=== PATIENT | female | born 1955 | race Caucasian/White ===

== ENCOUNTER 2016-07-11 09:42 | Emergency (ER) | payer MEDICAID, MEDICARE ==
[~2016-07-11] VITALS: Ht 154.9 cm; Wt 74.5 kg
[~2016-07-11 09:42] MED LIST: ADV250 IH; ASPI-449 PO; BUPR-93 PO; CLON.5 PO; DONE10TA43 PO; DONE5TAB PO; ESCI20TA PO; HALO10TA15 PO; LISI-660 PO; METF500T4 PO; MULT1CAP42 PO; OMEP20CA10 PO; SIMV20 PO; ZOLP10 PO
[2016-07-11] MEDS ORDERED: IBUPROFEN 600 MG TABLET PO ONE (10:15)
[2016-07-11 10:45] VITALS: BP 151/60
== END 2016-07-11 12:04 | disposition home or self-care (01) ==
LOC: EMS 09:43
DX: S82.892A Other fracture of left lower leg, initial encounter for closed fracture (principal); S93.401A Sprain of unspecified ligament of right ankle, initial encounter; I10 Essential (primary) hypertension; E78.00 Pure hypercholesterolemia, unspecified; J45.909 Unspecified asthma, uncomplicated; K21.9 Gastro-esophageal reflux disease without esophagitis; X58.XXXA Exposure to other specified factors, initial encounter; Y93.01 Activity, walking, marching and hiking; Y92.89 Other specified places as the place of occurrence of the external cause; Y99.8 Other external cause status
CPT/HCPCS: 29515; 99284

== ENCOUNTER 2017-07-16 10:44 | Inpatient (IN) | payer MEDICARE ==
[~2017-07-16] VITALS: Ht 154.9 cm; Wt 93.5 kg
[~2017-07-16 10:44] MED LIST changes: -DONE5TAB PO; +DONE5TAB5 PO; +SIMV-260 PO; -SIMV20 PO; -ZOLP10 PO; +ZOLP10TA7 PO
[2017-07-16] MEDS ORDERED: LEVO50 PO (11:11)
[2017-07-16] MEDS ORDERED: TOPI100T37 PO (11:11)
[2017-07-16] MEDS ORDERED: MELO-107 PO (11:11)
[2017-07-16] MEDS ORDERED: BENZ1TAB10 PO (11:11)
[2017-07-16] MEDS ORDERED: VALP250 PO (11:11)
[2017-07-16] MEDS ORDERED: ZIPR80CA2 PO (11:11)
[2017-07-16] MEDS ORDERED: ESTR-95 PO (11:11)
[2017-07-16] MEDS ORDERED: DIVA500T35 PO (11:11)
[2017-07-16] MEDS ORDERED: RISP1 PO (11:11)
[2017-07-16] MEDS ORDERED: ATOR10TA84 PO (11:11)
[2017-07-16] MEDS ORDERED: ALBU8HFA IH (11:11)
[2017-07-16 11:46] LABS: BASOPHILS % (AUTO) 0.2 % (0.0-2.0); EOSINOPHILS % (AUTO) 0.3 % (1.0-6.0); HEMATOCRIT 34.7 % (36-46); LYMPHOCYTES # (AUTO) 1.8 K/uL (1.0-4.8); MEAN CORPUSCULAR HEMOGLOBIN 33.2 pg (26.0-34.0); MEAN CORPUSCULAR HGB CONC 34.6 G/dL (31.0-37.0); MEAN CORPUSCULAR VOLUME 96 fL (80-100); MONOCYTES # (AUTO) 0.6 K/uL (0.1-1.0); MONOCYTES % (AUTO) 11.1 % (2.0-9.0); NEUTROPHILS # (AUTO) 3.1 K/uL (1.8-7.7); NEUTROPHILS % (AUTO) 55.4 % (40.0-70.0); PLATELET COUNT (AUTO) 174 K/uL (150-450); RED BLOOD CELL COUNT(AUTO) 3.61 MIL/uL (4.00-5.20); RED CELL DISTRIBUTION WIDTH 12.1 % (11.5-14.5)
[2017-07-16 11:58] LABS: ANION GAP 10 mmol/L (8-16); CALCIUM, TOTAL 8.9 mg/dL (8.8-10.5); CARBON DIOXIDE 24 mmol/L (22-29); CHLORIDE 98 mmol/L (98-107); CREATININE 0.75 mg/dL (0.60-1.30); GLOMERULAR FILTR. RATE CALC > 60 mL/min (>60); GLUCOSE,RANDOM 104 mg/dL (70-110); POTASSIUM 4.5 mmol/L (3.5-5.1); SODIUM SERUM 132 mmol/L (136-145); UREA NITROGEN, BLOOD 8 mg/dL (7-18)
[2017-07-16 12:05] LABS: ALANINE AMINOTRANSFERASE 26 U/L (12-78); ALKALINE PHOSPHATASE 60 U/L (46-116); ASPARTATE AMINOTRANSFERASE 31 U/L (15-37); BILIRUBIN,TOTAL 0.2 mg/dL (0.1-1.0); TOTAL PROTEIN, SERUM 6.4 g/dL (6.4-8.2); VALPROIC ACID 80 mcg/mL (50-100)
[2017-07-16] MEDS ORDERED: LORazepam 2 MG TABLET PO PRN (13:00)
[2017-07-16] MEDS ORDERED: ZOLPIDEM TARTRATE 10 MG TABLET PO PRN (13:00)
[2017-07-16] MEDS ORDERED: HALOPERIDOL 5 MG TABLET PO PRN (13:00)
[2017-07-16 13:08] LABS: AMPHET/METH SCREEN,URINE NEGATIVE (NEGATIVE); BARBITURATE SCREEN, URINE NEGATIVE (NEGATIVE); BENZODIAZEPINES SCREEN,URINE NEGATIVE (NEGATIVE); CANNABINOID SCREEN,URINE NEGATIVE (NEGATIVE); COCAINE SCREEN,URINE NEGATIVE (NEGATIVE); METHADONE SCREEN, URINE NEGATIVE (NEGATIVE); OPIATE SCREEN,URINE NEGATIVE (NEGATIVE)
[2017-07-16 13:13] LABS: PHENCYCLIDINE SCREEN,URINE NEGATIVE (NEGATIVE)
[2017-07-16 13:43] LABS: APPEARANCE,URINE CLEAR (CLEAR); BILIRUBIN,URINE NEGATIVE (NEGATIVE); GLUCOSE, URINE (UA) NEGATIVE (NEGATIVE); KETONES,URINE NEGATIVE (NEGATIVE); LEUKOCYTE ESTERASE ,URINE TRACE (NEGATIVE); NITRATE,URINE NEGATIVE (NEGATIVE); OCCULT BLOOD,URINE TRACE (NEGATIVE); PH,URINE 7.5 (5.0-8.0); PROTEIN,URINE NEGATIVE (NEGATIVE); UROBILINOGEN,URINE 0.2 mg/dL (<=1.0)
[2017-07-16 14:07] LABS: BACTERIA,URINE None Seen /HPF (None Seen); RBC,URINE 0-2 /HPF (0-2); SQUAMOUS EPITHELIAL CELL,UR Few /LPF (None Seen); TRANSITIONAL EPI CELLS,URINE Few /LPF (None Seen)
[2017-07-16 16:06] VITALS: BP 115/63
[2017-07-16] MEDS ORDERED: ALBUTEROL SULFATE HFA 90 MCG/PUFF 8 GM INHALER IH PRN (17:15)
[2017-07-16] MEDS: MetFORMIN HCL 500 MG TABLET PO SCH (18:15)
[2017-07-16] MEDS ORDERED: ACETAMINOPHEN 325 MG TABLET PO PRN (20:15)
[2017-07-16] MEDS ORDERED: IBUPROFEN 400 MG TABLET PO PRN (20:15)
[2017-07-16] MEDS ORDERED: DONEPEZIL HCL 5 MG TABLET PO SCH (21:00)
[2017-07-16] MEDS: DONEPEZIL HCL 10 MG TABLET PO SCH (21:15)
[2017-07-16] MEDS: DIVALPROEX SODIUM 500 MG ER TABLET PO SCH (21:15)
[2017-07-16] MEDS: LEVOTHYROXINE SODIUM 50 MCG TABLET PO SCH (21:15)
[2017-07-16] MEDS: ATORVASTATIN CALCIUM 10 MG TABLET PO SCH (21:15)
[2017-07-17 06:07] LABS: GLUCOMETER DEV NAME(LOC) 3EI B; GLUCOSE,POINT OF CARE 94 MG/DL (70-110)
[2017-07-17] MEDS: ZIPRASIDONE HCL 80 MG CAPSULE PO SCH ×2 (07:07→16:55)
[2017-07-17] MEDS: MELOXICAM 7.5 MG TABLET PO SCH ×2 (07:07→16:55)
[2017-07-17] MEDS: MetFORMIN HCL 500 MG TABLET PO SCH ×2 (07:08→16:55)
[2017-07-17 07:43] LABS: CHOL/HDL RATIO 2.2 (3.9-5.7)
[2017-07-17] MEDS: RisperiDONE 1 MG TABLET PO SCH (09:01)
[2017-07-17] MEDS: ESTRADIOL 1 MG TABLET PO SCH (09:01)
[2017-07-17] MEDS: BENZTROPINE MESYLATE 1 MG TABLET PO SCH ×2 (09:01→16:55)
[2017-07-17] MEDS: DIVALPROEX SODIUM 500 MG ER TABLET PO SCH ×2 (09:01→20:24)
[2017-07-17] MEDS: FLUTICASONE/VILANTEROL 200-25 MCG/INH INHALER [14] IH SCH (09:02)
[2017-07-17] MEDS: ASPIRIN 81 MG CHEWABLE TABLET PO SCH (09:02)
[2017-07-17] MEDS: TOPIRAMATE 100 MG TABLET PO SCH ×2 (09:02→16:55)
[2017-07-17] MEDS: MULTIVITAMINS WITH MINERALS, THERAPEUTIC TABLET PO SCH (09:02)
[2017-07-17 12:40] VITALS: BP 122/60
[2017-07-17 16:27] LABS: GLUCOMETER DEV NAME(LOC) 3EX 1; GLUCOSE,POINT OF CARE 91 MG/DL (70-110)
[2017-07-17] MEDS ORDERED: ACETAMINOPHEN 325 MG TABLET PO PRN (16:30)
[2017-07-17 16:53] VITALS: BP 124/60
[2017-07-17] MEDS: ATORVASTATIN CALCIUM 10 MG TABLET PO SCH (20:24)
[2017-07-17] MEDS: LEVOTHYROXINE SODIUM 50 MCG TABLET PO SCH (20:24)
[2017-07-17] MEDS: DONEPEZIL HCL 10 MG TABLET PO SCH (20:24)
[2017-07-18 04:09] VITALS: BP 111/71
[2017-07-18 05:37] LABS: GLUCOMETER DEV NAME(LOC) 3EI B; GLUCOSE,POINT OF CARE 118 MG/DL (70-110)
[2017-07-18 06:48] LABS: HEMOGLOBIN A1C 6.4 % (4.5-6.2)
[2017-07-18 06:49] LABS: THYROID STIMULATING HORMONE 2.45 uIU/mL (0.36-3.74)
[2017-07-18] MEDS: MetFORMIN HCL 500 MG TABLET PO SCH ×2 (07:11→17:13)
[2017-07-18] MEDS: MELOXICAM 7.5 MG TABLET PO SCH ×2 (07:11→17:13)
[2017-07-18] MEDS: ZIPRASIDONE HCL 80 MG CAPSULE PO SCH ×2 (07:12→17:13)
[2017-07-18 08:06] VITALS: BP 120/46
[2017-07-18] MEDS: ASPIRIN 81 MG CHEWABLE TABLET PO SCH (09:08)
[2017-07-18] MEDS: BENZTROPINE MESYLATE 1 MG TABLET PO SCH ×2 (09:08→17:13)
[2017-07-18] MEDS: FLUTICASONE/VILANTEROL 200-25 MCG/INH INHALER [14] IH SCH (09:09)
[2017-07-18] MEDS: TOPIRAMATE 100 MG TABLET PO SCH ×2 (09:09→17:13)
[2017-07-18] MEDS: DIVALPROEX SODIUM 500 MG ER TABLET PO SCH ×2 (09:09→20:37)
[2017-07-18] MEDS: MULTIVITAMINS WITH MINERALS, THERAPEUTIC TABLET PO SCH (09:09)
[2017-07-18] MEDS: RisperiDONE 1 MG TABLET PO SCH (09:09)
[2017-07-18] MEDS: ESTRADIOL 1 MG TABLET PO SCH (09:10)
[2017-07-18 17:29] VITALS: BP 96/52
[2017-07-18] MEDS: DONEPEZIL HCL 10 MG TABLET PO SCH (20:37)
[2017-07-18] MEDS: LEVOTHYROXINE SODIUM 50 MCG TABLET PO SCH (20:37)
[2017-07-18] MEDS: ATORVASTATIN CALCIUM 10 MG TABLET PO SCH (20:37)
[2017-07-18 21:02] LABS: GLUCOMETER DEV NAME(LOC) 3EX 1; GLUCOSE,POINT OF CARE 104 MG/DL (70-110)
[2017-07-19 03:36] VITALS: BP 128/67
[2017-07-19 05:28] LABS: GLUCOMETER DEV NAME(LOC) 3EI B; GLUCOSE,POINT OF CARE 77 MG/DL (70-110)
[2017-07-19] MEDS: ZIPRASIDONE HCL 80 MG CAPSULE PO SCH ×2 (06:51→08:26)
[2017-07-19] MEDS: MELOXICAM 7.5 MG TABLET PO SCH ×2 (06:51→16:26)
[2017-07-19] MEDS: MetFORMIN HCL 500 MG TABLET PO SCH ×2 (06:51→16:27)
[2017-07-19] MEDS: MULTIVITAMINS WITH MINERALS, THERAPEUTIC TABLET PO SCH (08:25)
[2017-07-19] MEDS: BENZTROPINE MESYLATE 1 MG TABLET PO SCH ×2 (08:25→16:27)
[2017-07-19] MEDS: DIVALPROEX SODIUM 500 MG ER TABLET PO SCH ×2 (08:26→21:43)
[2017-07-19] MEDS: FLUTICASONE/VILANTEROL 200-25 MCG/INH INHALER [14] IH SCH (08:26)
[2017-07-19] MEDS: TOPIRAMATE 100 MG TABLET PO SCH ×2 (08:26→16:27)
[2017-07-19] MEDS: RisperiDONE 1 MG TABLET PO SCH (08:26)
[2017-07-19] MEDS: ASPIRIN 81 MG CHEWABLE TABLET PO SCH (08:26)
[2017-07-19] MEDS: ESTRADIOL 1 MG TABLET PO SCH (08:27)
[2017-07-19 08:40] VITALS: BP 100/67
[2017-07-19 16:38] LABS: GLUCOMETER DEV NAME(LOC) 3EX 1; GLUCOSE,POINT OF CARE 105 MG/DL (70-110)
[2017-07-19 18:14] VITALS: BP 115/68
[2017-07-19] MEDS: ATORVASTATIN CALCIUM 10 MG TABLET PO SCH (21:42)
[2017-07-19] MEDS: LEVOTHYROXINE SODIUM 50 MCG TABLET PO SCH (21:42)
[2017-07-19] MEDS: DONEPEZIL HCL 10 MG TABLET PO SCH (21:42)
[2017-07-20 06:08] LABS: GLUCOMETER DEV NAME(LOC) 3EI B; GLUCOSE,POINT OF CARE 77 MG/DL (70-110)
[2017-07-20 06:26] LABS: ANION GAP 13 mmol/L (8-16); CALCIUM, TOTAL 8.2 mg/dL (8.8-10.5); CARBON DIOXIDE 20 mmol/L (22-29); CHLORIDE 103 mmol/L (98-107); CREATININE 0.61 mg/dL (0.60-1.30); GLOMERULAR FILTR. RATE CALC > 60 mL/min (>60); GLUCOSE,RANDOM 83 mg/dL (70-110); POTASSIUM 3.8 mmol/L (3.5-5.1); SODIUM SERUM 136 mmol/L (136-145); UREA NITROGEN, BLOOD 12 mg/dL (7-18)
[2017-07-20] MEDS: MetFORMIN HCL 500 MG TABLET PO SCH ×2 (06:31→16:39)
[2017-07-20] MEDS: ZIPRASIDONE HCL 80 MG CAPSULE PO SCH ×2 (06:31→16:39)
[2017-07-20] MEDS: MELOXICAM 7.5 MG TABLET PO SCH ×2 (06:31→16:39)
[2017-07-20] MEDS: ESTRADIOL 1 MG TABLET PO SCH (08:57)
[2017-07-20] MEDS: MULTIVITAMINS WITH MINERALS, THERAPEUTIC TABLET PO SCH (08:57)
[2017-07-20] MEDS: RisperiDONE 1 MG TABLET PO SCH (08:57)
[2017-07-20] MEDS: TOPIRAMATE 100 MG TABLET PO SCH ×2 (08:57→16:39)
[2017-07-20] MEDS: DIVALPROEX SODIUM 500 MG ER TABLET PO SCH ×2 (08:57→20:13)
[2017-07-20] MEDS: BENZTROPINE MESYLATE 1 MG TABLET PO SCH ×2 (08:58→16:39)
[2017-07-20] MEDS: ASPIRIN 81 MG CHEWABLE TABLET PO SCH (08:58)
[2017-07-20] MEDS: FLUTICASONE/VILANTEROL 200-25 MCG/INH INHALER [14] IH SCH (08:58)
[2017-07-20 09:46] VITALS: BP 120/70
[2017-07-20 16:42] LABS: GLUCOMETER DEV NAME(LOC) 3EX 1; GLUCOSE,POINT OF CARE 95 MG/DL (70-110)
[2017-07-20 17:30] VITALS: BP 115/69
[2017-07-20] MEDS: ATORVASTATIN CALCIUM 10 MG TABLET PO SCH (20:12)
[2017-07-20] MEDS: DONEPEZIL HCL 10 MG TABLET PO SCH (20:12)
[2017-07-20] MEDS: LEVOTHYROXINE SODIUM 50 MCG TABLET PO SCH (20:12)
[2017-07-21 01:38] VITALS: BP 119/64
[2017-07-21 06:02] LABS: GLUCOMETER DEV NAME(LOC) 3EI B; GLUCOSE,POINT OF CARE 71 MG/DL (70-110)
[2017-07-21] MEDS: MELOXICAM 7.5 MG TABLET PO SCH ×2 (06:52→17:35)
[2017-07-21] MEDS: MetFORMIN HCL 500 MG TABLET PO SCH ×2 (06:52→17:34)
[2017-07-21] MEDS: ZIPRASIDONE HCL 80 MG CAPSULE PO SCH ×2 (06:53→17:34)
[2017-07-21 10:07] VITALS: BP 101/45
[2017-07-21] MEDS: FLUTICASONE/VILANTEROL 200-25 MCG/INH INHALER [14] IH SCH (10:08)
[2017-07-21] MEDS: BENZTROPINE MESYLATE 1 MG TABLET PO SCH ×2 (10:09→17:35)
[2017-07-21] MEDS: ASPIRIN 81 MG CHEWABLE TABLET PO SCH (10:09)
[2017-07-21] MEDS: TOPIRAMATE 100 MG TABLET PO SCH ×2 (10:09→17:35)
[2017-07-21] MEDS: RisperiDONE 1 MG TABLET PO SCH (10:09)
[2017-07-21] MEDS: ESTRADIOL 1 MG TABLET PO SCH (10:09)
[2017-07-21] MEDS: DIVALPROEX SODIUM 500 MG ER TABLET PO SCH ×2 (10:09→20:42)
[2017-07-21] MEDS: MULTIVITAMINS WITH MINERALS, THERAPEUTIC TABLET PO SCH (10:09)
[2017-07-21] MEDS: LOPERAMIDE HCL 2 MG CAPSULE PO PRN (12:47)
[2017-07-21 16:10] VITALS: BP 115/52
[2017-07-21] MEDS: IBUPROFEN 400 MG TABLET PO PRN (16:13)
[2017-07-21 16:38] LABS: GLUCOMETER DEV NAME(LOC) 3EX 1; GLUCOSE,POINT OF CARE 85 MG/DL (70-110)
[2017-07-21] MEDS: ATORVASTATIN CALCIUM 10 MG TABLET PO SCH (20:42)
[2017-07-21] MEDS: DONEPEZIL HCL 10 MG TABLET PO SCH (20:42)
[2017-07-21] MEDS: LEVOTHYROXINE SODIUM 50 MCG TABLET PO SCH (20:42)
[2017-07-22 05:33] LABS: GLUCOMETER DEV NAME(LOC) 3EI B; GLUCOSE,POINT OF CARE 76 MG/DL (70-110)
[2017-07-22] MEDS: ZIPRASIDONE HCL 80 MG CAPSULE PO SCH ×2 (07:23→17:41)
[2017-07-22] MEDS: MetFORMIN HCL 500 MG TABLET PO SCH ×2 (07:23→17:41)
[2017-07-22] MEDS: MELOXICAM 7.5 MG TABLET PO SCH ×2 (07:23→17:43)
[2017-07-22 08:14] VITALS: BP 127/77
[2017-07-22] MEDS: BENZTROPINE MESYLATE 1 MG TABLET PO SCH ×2 (08:21→16:17)
[2017-07-22] MEDS: FLUTICASONE/VILANTEROL 200-25 MCG/INH INHALER [14] IH SCH (08:21)
[2017-07-22] MEDS: ASPIRIN 81 MG CHEWABLE TABLET PO SCH (08:21)
[2017-07-22] MEDS: MULTIVITAMINS WITH MINERALS, THERAPEUTIC TABLET PO SCH (08:22)
[2017-07-22] MEDS: RisperiDONE 1 MG TABLET PO SCH (08:22)
[2017-07-22] MEDS: ESTRADIOL 1 MG TABLET PO SCH (08:22)
[2017-07-22] MEDS: DIVALPROEX SODIUM 500 MG ER TABLET PO SCH ×2 (08:22→20:15)
[2017-07-22] MEDS: TOPIRAMATE 100 MG TABLET PO SCH ×2 (08:23→16:17)
[2017-07-22] MEDS: LOPERAMIDE HCL 2 MG CAPSULE PO PRN (08:25)
[2017-07-22 16:22] LABS: GLUCOMETER DEV NAME(LOC) 3EX 1; GLUCOSE,POINT OF CARE 75 MG/DL (70-110)
[2017-07-22 16:43] VITALS: BP 109/72
[2017-07-22] MEDS: IBUPROFEN 400 MG TABLET PO PRN (16:43)
[2017-07-22] MEDS: DONEPEZIL HCL 10 MG TABLET PO SCH (20:15)
[2017-07-22] MEDS: ATORVASTATIN CALCIUM 10 MG TABLET PO SCH (20:15)
[2017-07-22] MEDS: LEVOTHYROXINE SODIUM 50 MCG TABLET PO SCH (20:15)
[2017-07-23 05:43] LABS: GLUCOMETER DEV NAME(LOC) 3EI B; GLUCOSE,POINT OF CARE 95 MG/DL (70-110)
[2017-07-23] MEDS: ZIPRASIDONE HCL 80 MG CAPSULE PO SCH (06:54)
[2017-07-23] MEDS: MELOXICAM 7.5 MG TABLET PO SCH (06:54)
[2017-07-23] MEDS: MetFORMIN HCL 500 MG TABLET PO SCH (06:55)
[2017-07-23] MEDS: RisperiDONE 1 MG TABLET PO SCH (09:49)
[2017-07-23] MEDS: MULTIVITAMINS WITH MINERALS, THERAPEUTIC TABLET PO SCH (09:49)
[2017-07-23] MEDS: BENZTROPINE MESYLATE 1 MG TABLET PO SCH (09:49)
[2017-07-23] MEDS: ASPIRIN 81 MG CHEWABLE TABLET PO SCH (09:49)
[2017-07-23] MEDS: FLUTICASONE/VILANTEROL 200-25 MCG/INH INHALER [14] IH SCH (09:50)
[2017-07-23] MEDS: ESTRADIOL 1 MG TABLET PO SCH (09:50)
[2017-07-23] MEDS: DIVALPROEX SODIUM 500 MG ER TABLET PO SCH (09:50)
[2017-07-23] MEDS: TOPIRAMATE 100 MG TABLET PO SCH (09:50)
[2017-07-23] MEDS ORDERED: DIVA500T52 PO (10:39)
[2017-07-23] MEDS ORDERED: MULT-1239 PO (10:42)
[2017-07-23 12:39] VITALS: BP 132/88
[2017-07-23] MEDS: IBUPROFEN 400 MG TABLET PO PRN (12:39)
== END 2017-07-23 16:00 | disposition home health service (06) | DRG 885 ==
LOC: EMS 10:45 → 3EX 14:05
PROVIDERS: ADMIT Psychiatry & Neurology Psychiatry; ATTEND Psychiatry & Neurology Psychiatry
DX: F20.0 Paranoid schizophrenia (principal); E11.9 Type 2 diabetes mellitus without complications; F03.90 Unspecified dementia, unspecified severity, without behavioral disturbance, psychotic disturbance, mood disturbance, and anxiety; E03.9 Hypothyroidism, unspecified; F41.9 Anxiety disorder, unspecified; E78.00 Pure hypercholesterolemia, unspecified; F32.9 Major depressive disorder, single episode, unspecified; J45.909 Unspecified asthma, uncomplicated; K21.9 Gastro-esophageal reflux disease without esophagitis; J44.9 Chronic obstructive pulmonary disease, unspecified; E78.5 Hyperlipidemia, unspecified; I10 Essential (primary) hypertension; R45.87 Impulsiveness; Z98.891 History of uterine scar from previous surgery; Z79.899 Other long term (current) drug therapy
CPT/HCPCS: 82962; 83036; 84443; 87081; 99285; G0480